=== PATIENT | female | born 1985 | race African-American/Black ===

== ENCOUNTER 2022-05-10 17:25 | Emergency (ER) | payer OTHER, SELFPAY ==
--- NOTE | 2022-05-10 17:26 | ED.FEMALEGU ---
HPI - Female Genitourinary General Chief complaint: Urogenital-Female Stated complaint: uti symptoms Time Seen by Provider: 05/10/22 17:26 Source: patient Mode of arrival: ambulatory Limitations: no limitations History of Present Illness HPI Narrative: Mrs. Martin is a 36 year old female patient presenting to the clinic today with c/o possible UTI x 2 weeks. She reports she is having urinary frequency, urgency, and bladder pressure. She denies any fever, chills, abdomen pain, or flank pain. Related Data Allergies Allergy/AdvReac Type Severity Reaction Status Date / Time No Known Allergies Allergy Mild Unverified 07/13/09 18:52 Review of Systems Review of Systems: Pertinent positives per HPI. Patient denies any fever, chills, rash, headache, visual changes, dizziness, cough, runny nose, sore throat, shortness of breath, chest pain, palpitations, nausea, vomiting, diarrhea, constipation, abdominal pain. PMFSH Comments At the time of my signature, I reviewed and agree with the nursing past medical, surgical, social, and family history. There is no relevant family history pertinent to the patient complaint. Exam Narrative: General: Well-developed, well nourished, in no apparent distress. Head: Normocephalic, atraumatic. Cardio: Regular rate and rhythm, s1 and s2 normal, no murmur appreciated. Resp: Clear to auscultation bilaterally, no rhonchi, rales, wheezing or rubs. Abdomen: Soft, pliable, bowel sounds present in all quadrants, non-tender to palpation, no organomegly, no CVAT tenderness. Course Course Emergency Course: Portions of this record may have been created with voice recognition software. Level of Care: Express Care Visit Vital Signs Vital signs: Vital signs reviewed MDM - Female Genitourinary MDM Narrative Medical decision making narrative: At the time of visit patient is resting exam table. UA was obtained and shows a trace of leukocytes, this could be possibly contaminant but I will send her urine for culture. Pyridium prescription was given to the patient to help manage her symptoms until urine culture comes back. Supportive measures were discussed with the patient she voiced understanding of discharge instructions and agrees to the treatment plan. Differential Diagnosis Differential diagnosis: Likely urinary tract infection and cystitis Discharge Plan Discharge Clinical Impression: Urinary frequency, Urinary urgency Patient Disposition: Home, Self-Care Condition: Stable Instructions: Antibiotic Form, Phenazopyridine (By mouth), Urinary Urgency and Frequency (DC) Additional Instructions: Increase fluids and stay well hydrated Pyridium as prescribed. Wipe front to back. May use wet wipes. Avoid tub baths If sexually active- pee before and after intercourse. Wear cotton panties Avoid tight clothing up against the genitals Follow up with your PCP in 1 week if symptoms persist. Prescriptions: New phenazopyridine [Pyridium] 200 mg tablet 200 mg PO TID PRN (Reason: pain) Qty: 6 0RF Follow-up/Referrals: UNKNOWN,DOCTOR [Primary Care Provider] - Time of Disposition: 17:53 Quality NIHSS Nursing Documentation ED NIHSS nursing documentation: reviewed/agree
[2022-05-10 17:34] VITALS: BP 108/70; PULSE 85; RESP 16; TEMP 37.4; O2SAT 100
== END 2022-05-10 17:58 | disposition home or self-care (01) ==
PROVIDERS: Emergency Provider Nurse Practitioner Family
DX: R35.0 Frequency of micturition (principal); R39.15 Urgency of urination
CPT/HCPCS: 81003; 87077; 87086; 87088; 87186; 99213; G0463

== ENCOUNTER 2023-01-02 08:07 | Outpatient (CLI) | payer OTHER, SELFPAY ==
--- NOTE | ~2023-01-02 | MMUS_ITS ---
EXAMINATION: MM diagnostic jonas BI w chon, US breast BI complete HISTORY: Palpable left breast lump TECHNIQUE: Additional 3-D tomosynthesis images of the breasts were performed and synthetic 2-D images were generated. CAD analysis was submitted and interpreted. High resolution complete bilateral breas t ultrasound was performed. COMPARISON: No prior studies for comparison. BREAST PARENCHYMAL COMPOSITION: The breasts are extremely dense, which lowers the sensitivity of mamm ography FINDINGS: MAMMOGRAPHIC FINDINGS: The breast are composed of scattered bilateral nodular asymmetries which are obscured by dense fibrog landular tissue. No suspicious calcifications or architectural distortion. ULTRASOUND: Complete bilateral US of all 4 quadrants of the breasts and retroareolar region was reviewed. Right breast: At 8:00, 8 cm from the nipple there is an oval parallel oriented partially cystic mass measuring 6 mm with internal septations, most likely benign complicated cyst. At 10:00, 15 cm from th e nipple there is an oval parallel oriented hypoechoic mass with without posterior attenuation or int ernal vascularity measuring 8 mm. At 10:00, 12 cm from the nipple there is an oval hypoechoic mass me asuring 3 mm with low-level internal echoes, parallel orientation, no posterior features, likely a co mplicated cyst. Left breast: In the area of palpable concern at 2:00, 10 cm from the nipple, there is a 6 mm cyst. At 2:00, 9 cm from the nipple, there is a wider than tall hypoechoic 3 mm mass with internal septations , most likely benign cluster of microcysts. In the area of palpable concern at 3:00, 7 cm from the ni pple, there is an oval hypoechoic mass measuring 5 mm with parallel orientation, no significant poste rior features or internal vascularity, likely benign. At 11:00, 10 cm from the nipple there is a simp le 4 mm cyst. Near the areola there is a 5 mm cyst. IMPRESSION: 1. Probable benign bilateral breast masses. 2. Recommend 6 month follow-up diagnostic bilateral mammogram and ultrasound. BI-RADS category 3, probably benign findings. Reviewed, dictated and finalized at location A. IMPRESSION: 1. Probable benign bilateral breast masses. 2. Recommend 6 month follow-up diagnostic bilateral mammogram and ultrasound. BI-RADS category 3, probably benign findings.
== END 2023-01-02 08:08 ==
PROVIDERS: PCP Obstetrics & Gynecology Gynecology; Visit Provider Obstetrics & Gynecology Gynecology
DX: N64.59 Other signs and symptoms in breast (principal)
CPT/HCPCS: 76641; 77062; 77066; G0279

== ENCOUNTER 2023-07-16 18:49 | Emergency (ER) | payer OTHER, SELFPAY ==
[2023-07-16 19:03] VITALS: BP 124/86; PULSE 62; RESP 16; TEMP 36.8; O2SAT 100
--- NOTE | 2023-07-16 19:19 | ED.FEMALEGU ---
HPI - Female Genitourinary General Chief complaint: Urogenital-Female Stated complaint: Urinary Problems Time Seen by Provider: 07/16/23 19:20 Source: RN notes reviewed and old records reviewed Mode of arrival: ambulatory Limitations: no limitations History of Present Illness HPI Narrative: 37 year old female presents to express care with complaints of urinary tract symptoms which includes pressure with urination for the past 2 weeks with frequency,increased for past week with today experiencing odor with urination, Patient reports that she has been drinking some cranberry juice for her symptoms, has not taken any AZO. patient denies any fever, chills or sweats or any nausea or vomiting. Patient denies any concern for STD's. MD elicited complaint: UTI Onset (ago): week(s) (2) Location of symptoms: perineum Severity: mild Quality of pain: other (pressure) Vaginal discharge: none Vaginal bleeding: none Related Data Allergies Allergy/AdvReac Type Severity Reaction Status Date / Time No Known Allergies Allergy Mild Unverified 07/16/23 19:02 Review of Systems Review of Systems: CONSTITUTIONAL: Denies fever, chills, or sweats. CARDIOVASCULAR: Denies chest pain, palpitations, or edema. RESPIRATORY: Denies cough or dyspnea. GASTROINTESTINAL: Denies abdominal pain, nausea, vomiting, or diarrhea. GENITOURINARY: Reports dysuria, frequency, . Denies flank pain or hematuria. SKIN: Denies rash or itching. MUSCULOSKELETAL: Denies back pain or myalgia. Denies CVA tenderness NEUROLOGIC: Denies headache All systems reviewed & are unremarkable except as noted in HPI and below PMFSH Social History Social History (Updated 07/16/23 @ 20:28 by Farida Huggins NP) Smoking status: Never smoker Alcohol intake: current Alcohol use details: social Substance use type: does not use Gender identity (if verbalized by the patient): Female Comments At time of signature, agree with nursing past medical, surgical, social and family history. There is no relevant family history pertinent to the presenting complaint Exam Narrative: GENERAL: Well-appearing, well-nourished, and in no acute distress. HEAD: Normocephalic, atraumatic. NECK: Supple. no lymphadenopathy CHEST: Clear to auscultation. No respiratory distress.SAO2 100% on room air HEART: Regular rate and rhythm. No murmur heard. Normal peripheral pulses. ABDOMEN: Soft, nontender, nondistended, normal active bowel sounds. No CVA tenderness reports perineum pressure and frequency of urination with some odor of urine just today. EXTREMITIES: Normal range of motion. No edema. SKIN: Warm, dry, no rash. NEURO: No focal deficits. Alert and oriented x3. Course Course Emergency Course: Patient is aware of diagnosis, understands and agrees to treatment plan.? Anticipatory guidance given.? Patient agrees to follow-up as directed and is aware of reasons to seek care at the emergency department. Portions of this record may have been created with voice recognition software Level of Care: Express Care Visit Vital Signs Vital signs: Vital Signs Temperature 36.8 C 07/16/23 19:03 Pulse Rate 62 07/16/23 19:03 Respiratory Rate 16 07/16/23 19:03 Blood Pressure 124/86 07/16/23 19:03 Pulse Oximetry 100 07/16/23 19:03 Temperature 36.8 C 07/16/23 19:03 Pulse Rate 62 07/16/23 19:03 Respiratory Rate 16 07/16/23 19:03 Blood Pressure 124/86 07/16/23 19:03 Pulse Oximetry 100 07/16/23 19:03 MDM - Female Genitourinary MDM Narrative Medical decision making narrative: Exam findings and UA show no acute concerns or changes; patient is non-toxic appearing and is in no distress.? Patient is appropriate for outpatient treatment and follow-up. Differential Diagnosis Differential diagnosis: Likely urinary tract infection, cystitis and other (dysuria) Medical Records Attestation: I reviewed the patient's medical records. Lab Data Attestation: I reviewed the pa
== END 2023-07-16 19:34 | disposition home or self-care (01) ==
PROVIDERS: Emergency Provider Registered Nurse; PCP Obstetrics & Gynecology Gynecology
DX: N39.0 Urinary tract infection, site not specified (principal)
CPT/HCPCS: 81003; 87086; 87088; 99213; G0463

== ENCOUNTER 2023-08-01 08:30 | Outpatient (CLI) | payer OTHER, SELFPAY ==
--- NOTE | ~2023-08-01 | MMUS_ITS ---
EXAMINATION: MM diagnostic jonas BI w chon, US breast BI complete HISTORY: Six-month follow-up of probably benign findings TECHNIQUE: Full field and spot ML, MLO and CC 3-D tomosynthesis images of both breasts were performed and synthetic 2-D images were generated. CAD analysis was submitted and interpreted. High resolution complete bilateral breast ultrasound examination including all 4 quadrants and subareolar areas was performed. COMPARISON: 01/02/2023 bilateral diagnostic mammography and bilateral complete breast ultrasound 06/02/2019 outside bilateral screening mammogram BREAST PARENCHYMAL COMPOSITION: The breasts are heterogeneously dense, which may obscure small masses . FINDINGS: MAMMOGRAPHIC FINDINGS: No suspicious mass or architectural distortion, malignant calcification, skin thickening or retractio n or significant new or developing density is detected. ULTRASOUND: No suspicious mass or shadowing of either breast is detected. The following benign lesion s are noted: Right breast: 8:00 9 cm from nipple: Parallel circumscribed 2.2 x 6.8 x 6.2 mm complex lesion without internal vasc ularity or posterior shadowing, benign in appearance 10:00 12 cm from nipple: 3 mm cyst 10:00 12 cm from nipple: Circumscribed 2.4 x 3.6 mm cyst 10:00 11 cm from nipple: 1.8 x 2.9 mm cyst Left breast: 12:00 8 cm from nipple: 2.5 mm cyst 1:00 8 cm from nipple: 4 x 10 x 9 mm simple cyst 1:00 8 cm from nipple: 2.3 x 5.9 mm cyst 1:00 4 cm from nipple: Parallel circumscribed oval mixed echogenic and sonolucent 3 x 6 mm lesion wit hout internal vascularity or posterior shadowing, benign in appearance 7:00 6 cm from nipple: Similar 3.4 x 5 mm mixed sonolucent and hypoechoic lesion without internal vas cularity or posterior shadowing, benign in appearance 10:00 14 cm from nipple: 2.8 x 3.6 mm cyst 11:00 8 cm from nipple: 1.4 x 3.5 mm cyst IMPRESSION Benign findings Routine annual mammographic screening is recommended. BI-RADS Category 2: Benign Reviewed, dictated and finalized at location A. IMPRESSION Benign findings Routine annual mammographic screening is recommended. BI-RADS Category 2: Benign IMPRESSION Benign findings Routine annual mammographic screening is recommended. BI-RADS Category 2: Benign
== END 2023-08-01 08:31 ==
PROVIDERS: PCP Obstetrics & Gynecology Gynecology; Visit Provider Obstetrics & Gynecology Gynecology
DX: N64.59 Other signs and symptoms in breast (principal); R92.8 Other abnormal and inconclusive findings on diagnostic imaging of breast
CPT/HCPCS: 76641; 77062; 77066; G0279

== ENCOUNTER 2024-01-25 13:44 | Emergency (ER) | payer OTHER, SELFPAY ==
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
[2024-01-25 13:48] VITALS: BP 127/68; PULSE 70; RESP 18; TEMP 36.6; O2SAT 100
[2024-01-25] MEDS: KETOROLAC 30 MG/ML VIAL (*BKC) IM (16:45)
[2024-01-25] MEDS: HYDROcodone/acetaminophen (*CRX) 5-325 MG TABLET 1 TAB PO (16:46)
[2024-01-25] MEDS: CYCLOBENZAPRINE HCL 10 MG TABLET PO (16:46)
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
== END 2024-01-25 17:35 | disposition home or self-care (01) ==
PROVIDERS: Emergency Provider Nurse Practitioner Family
DX: S13.4XXA Sprain of ligaments of cervical spine, initial encounter (principal); S29.012A Strain of muscle and tendon of back wall of thorax, initial encounter; V49.40XA Driver injured in collision with unspecified motor vehicles in traffic accident, initial encounter
CPT/HCPCS: 72125; 72128; 96372; 99284; A9270; J1885

== ENCOUNTER 2024-08-09 10:18 | Outpatient (CLI) | payer BC, SELFPAY ==
--- NOTE | ~2024-08-09 | MM_ITS ---
EXAMINATION: MM screening [facility] BI w chon HISTORY: Screening TECHNIQUE: Craniocaudal and mediolateral oblique 3-D tomosynthesis images were obtained and synthetic 2-D images were generated. CAD analysis was submitted and interpreted. COMPARISON: Comparison to multiple prior studies sequentially, with oldest reviewed study dated 06/02. BREAST PARENCHYMAL COMPOSITION: Not dense: There are scattered areas of fibroglandular density. FINDINGS: There is no evidence of suspicious mass, calcification, or architectural distortion to sugg est malignancy in either breast. There has been no suspicious interval change. IMPRESSION: 1. No mammographic evidence of malignancy. 2. Recommend routine screening mammography in one year. BI-RADS Category 1: Negative Reviewed, dictated and finalized at location B. [employer]
== END 2024-08-09 10:19 | disposition home or self-care (01) ==
LOC: MICIMG 10:19
PROVIDERS: PCP Nurse Practitioner; Visit Provider Nurse Practitioner
DX: Z12.31 Encounter for screening mammogram for malignant neoplasm of breast (principal)
CPT/HCPCS: 77063; 77067

== ENCOUNTER 2025-08-27 18:59 | Emergency (ER) | payer BC, SELFPAY ==
[2025-08-27 19:13] VITALS: BP 115/71; PULSE 62; RESP 20; TEMP 36.4; O2SAT 100
--- NOTE | 2025-08-27 19:58 | ED_ITS ---
HPI - Female Genitourinary General Chief complaint: Back Pain/Injury Stated complaint: BACK PAIN History of Present Illness HPI Narrative: CHIEF COMPLAINT: Lower back pain. PATIENT SUMMARY: The patient presented with lower back pain. HISTORY OF PRESENT ILLNESS: The patient reported experiencing lower back pain initially on the right side, which then progressed upward/mid in the back. The pain was accompanied by urgency to urinate without corresponding output and increased vaginal discharge. The discharge was not yellow but was more than normal. The patient did not report itching. The back pain persisted on the right side and occasionally spanned the mid-back. It was sometimes consistent and rated as a 5 or 6 on a pain scale of 0 to 10. Resting alleviated the pain slightly, but it was not exacerbated specifically by movement or sitting. The patient reported not having fever, body aches, chills, nausea, vomiting, or a history of kidney stones. The patient also reported occasional pressure but no pain. PAST MEDICAL HISTORY: Not available. REVIEW OF SYSTEMS: Urinary: Positive for urgency with decreased output. Negative for fever, body aches, chills, nausea, vomiting, or history of kidney stones. Reproductive: Positive for increased vaginal discharge. Negative for itching or sexually transmitted infections. VITALS AND PHYSICAL EXAM: Not available. ASSESSMENT: 1. Urinary tract infection (UTI): The patient presented with urinary urgency and blood in urine but no leukocytes, nitrates, or WBCs, suggesting a possible UTI despite mixed presentation. 2. Kidney stones: The patient's right-sided flank pain and blood in urine raised suspicion, though the lack of severe pain made this less likely. 3. Musculoskeletal back pain: The patient's pain may stem from musculoskeletal issues, considering the location and nature of the pain. PLAN: Treatment: - Prescribed antibiotics for suspected UTI. - Recommended ibuprofen for pain management and inflammation. - Suggested topical treatments for muscle pain, such as Icy Hot or [place]. Tests: - Urine culture to confirm UTI. - Self-swab for potential bacterial vaginosis. Patient Education: - Advised on the use of liquid or chewable ibuprofen. - Informed about signs that would necessitate an emergency room visit. - Discussed the difference in antibiotics for UTI and potential bacterial vaginosis. Follow-Up: - Advised to visit the ER if symptoms worsen or do not improve. Disposition: - Patient to complete the antibiotic course and follow up as necessary based on culture results. MEDICAL DECISION MAKING: The patient presented with lower back pain, urinary urgency, and increased vaginal discharge. The initial differential diagnosis included UTI and kidney stones. A urine culture was planned to confirm the UTI, and antibiotics were prescribed as a precaution. The possibility of kidney stones was considered but deemed less likely due to the patient's pain level. Musculoskeletal pain was also considered given the nature and location of the pain. The patient was advised on pain management strategies, including prev-amn-aghqrth medications and topical treatments. The plan included further testing for bacterial vaginosis, with appropriate follow-up based on results. Patient education empha sized the importance of monitoring symptoms and seeking further care if required. Related Data Home Medications ?Medication ?Instructions ?Recorded ?Confirmed ?Last Taken ?Type drospirenone (contraceptive) 4 mg 08/27/25 Unknown H istory (28) tablet (Slynd) ergocalciferol (vitamin D2) 1,250 08/27/25 Unknown H istory mcg (50,000 unit) capsule Allergies Allergy/AdvReac Type Severity Reaction Status Date / Time mushroom Allergy Hives Verified 08/27/25 19:09 Review of Systems Review of Systems: All systems reviewed & are unremarkable except as noted in HPI and below Eyes: Eyes: Reports as per HPI ENT: Reports as per HPI Cardiovascular: Cardiovascular: Reports as per HPI Respiratory: Respiratory: Reports as per HPI Genitourinary: Genitourinary: Reports as per HPI Musculoskeletal: Musculoskeletal: Reports as per HPI Integumentary/Breasts: Skin/Breast: Reports as per HPI Neurologic: Reports as per HPI Psychiatric: Psychiatric: Reports as per HPI Endocrine: Endocrine: Reports as per HPI Hematologic/Lymphatic: Hematologic/Lymphatic: Reports as per HPI Allergic/Immunologic: Allergic/Immunologic: Reports as per HPI [facility] Social History Social History Smoking status: Never smoker Alcohol intake: current Alcohol use details: social Substance use type: does not use Gender identity (if verbalized by the patient): Female Exam Const: General: cooperative, healthy appearing, comfortable, no acute distress and well developed Orientation/consciousness: patient oriented x3 HENMT: Head: normal to inspection Eyes: General: appearance normal, both eyes and all related structures Resp: Effort & Inspection: normal respiratory effort and able to speak in complete sentences Auscultation: clear to auscultation bilaterally Cardio: Rate: regular rate Rhythm: regular rhythm Heart sounds: S1 normal heart sound present and S2 normal heart sound present Back/Spine/Pelvis: Back: no CVA tenderness Thoracic/Lumbar Spine: thoracic and lumbar spine normal to inspection and paraspinal muscle tenderness on the right in the lower thoracic and in the upper lumbar Skin: General skin exam: normal color Neuro: General: patient oriented x3 Cognition (Neuro): normal cognition Speech: normal speech Psych: Mental Status: mental status grossly normal Course Course Level of Care: Express Care Visit Vital Signs Vital signs: Vital Signs Temperature 97.6 F 08/27/25 19:13 Pulse Rate 62 08/27/25 19:13 Respiratory Rate 20 08/27/25 19:13 Blood Pressure 115/71 08/27/25 19:13 Pulse Oximetry 100 08/27/25 19:13 Oxygen Delivery Room Air 08/27/25 19:13 Temperature 97.6 F 08/27/25 19:13 Pulse Rate 62 08/27/25 19:13 Respiratory Rate 20 08/27/25 19:13 Blood Pressure 115/71 08/27/25 19:13 Pulse Oximetry 100 08/27/25 19:13 Oxygen Delivery Room Air 08/27/25 19:13 MDM - Female Genitourinary MDM Narrative Medical decision making narrative: ASSESSMENT: 1. Urinary tract infection (UTI): The patient presented with urinary urgency and blood in urine but no leukocytes, nitrates, or WBCs, suggesting a possible UTI despite mixed presentation. 2. Kidney stones: The patient's right-sided flank pain and blood in urine raised suspicion, though the lack of severe pain made this less likely. 3. Musculoskeletal back pain: The patient's pain may stem from musculoskeletal issues, considering the location and nature of the pain. PLAN: Treatment: - Prescribed antibiotics for suspected UTI. - Recommended ibuprofen for pain management and inflammation. - Suggested topical treatments for muscle pain, such as Icy Hot or [place]. Tests: - Urine culture to confirm UTI. - Self-swab for potential bacterial vaginosis. Patient Education: - Advised on the use of liquid or chewable ibuprofen. - Informed about signs that would necessitate an emergency room visit. - Discussed the difference in antibiotics for UTI and potential bacterial vagino sis. Follow-Up: - Advised to visit the ER if symptoms worsen or do not improve. Disposition: - Patient to complete the antibiotic course and follow up as necessary based on culture results. MEDICAL DECISION MAKING: The patient presented with lower back pain, urinary urgency, and increased vaginal discharge. The initial differential diagnosis included UTI and kidney stones. A urine culture was planned to confirm the UTI, and antibiotics were prescribed as a precaution. The possibility of kidney stones was considered but deemed less likely due to the patient's pain level. Musculoskeletal pain was also considered given the nature and location of the pain. The patient was advised on pain management strategies, including agxk-zeg-yhrsjkm medications and topical treatments. The plan included further testing for bacterial vaginosis, with appropriate follow-up based on results. Patient education emphasized the importance of monitoring symptoms and seeking further care if required. Differential Diagnosis Differential diagnosis: Likely urinary tract infection and bacterial vaginosis Lab Data Attestation: I reviewed the patient's lab results. Discharge Plan Discharge Clinical Impression: UTI symptoms, Flank pain, right side Patient Disposition: Home Condition: Stable Instructions: Antibiotic Form, Urinary Tract Infection in Women (ED), Flank Pain (ED) Additional Instructions: I am treating you for UTI as your sympotms are consistent with that but there is only blood in your urine at this time. If things get worse to the ER. We are doing a culture so if anything is positive than someone will call. Ibuprofen or tylenol for pain. Since you do not do well with pills you could try a arianne verision. Ibuprofen could be anywehre from 200-600mg every 6 to 8 hours. Tylenol is 500mg every 6 hours as needed. We are also swabbing you for BV if positive someone will call. Patient Language: Belgian Prescriptions: New nitrofurantoin monohyd/m-cryst [Macrobid] 100 mg capsule 100 mg PO Q12H 3 Days Qty: 6 0RF Rx Instructions: must administer with a meal/food No Action ergocalciferol (vitamin D2) 1,250 mcg (50,000 unit) capsule Slynd 4 mg (28) tablet Follow-up/Referrals: LizbethYamilet APRN [Primary Care Provider, Unknown] Time of Disposition: 20:08
[2025-08-29 11:50] LABS: EDUAAPPEAR Clear; EDUABILI Negative (Negative); EDUABLOOD 1+ (Negative); EDUACOLOR1 Yellow; EDUAGLUCOSE Negative (Negative); EDUAKETONE Negative (Negative); EDUALEUKO Negative (Negative); EDUANITRATE Negative (Negative); EDUAPH 6.5; EDUAPROTEIN Negative (Negative); EDUASPGRAVITY 1.020; EDUAUROBILI 1.0
== END 2025-08-27 20:20 | disposition home or self-care (01) ==
PROVIDERS: Emergency Provider Nurse Practitioner Family; PCP Nurse Practitioner Family
DX: R39.15 Urgency of urination (principal); R10.A1 Flank pain, right side; N89.8 Other specified noninflammatory disorders of vagina
CPT/HCPCS: 81003; 87798; 99213; G0463

== ENCOUNTER 2025-09-14 14:59 | Outpatient (CLI) | payer BC, SELFPAY ==
--- NOTE | ~2025-09-14 | US_ITS ---
EXAM/PROCEDURE: US pelvic complete HISTORY: pelvic pain COMPARISON: None available. TECHNIQUE: Pelvic ultrasound LMP: None provided/unknown FINDINGS: The uterus measures 9.2 x 4.7 x 5.4 cm Uterus is somewhat heterogeneous in echotexture with probable fibroids. The largest is in the fundal portion measuring 3.7 x 2.4 x 3.3 cm. Endometrial stripe: 6 mm Right ovary: 3.8 x 2.0 x 2.9 cm Left ovary: 3.0 x 1.7 x 2.3 cm Both ovaries appear normal in echotexture and vascular flow. No free fluid seen. IMPRESSION: Fibroid changes of the uterus. The ovaries appear normal in vascular flow, size and echotexture. Reviewed, dictated and finalized at location A. RANCE ASSOCIATE
== END 2025-09-14 15:00 | disposition home or self-care (01) ==
PROVIDERS: PCP Nurse Practitioner Family; Visit Provider Obstetrics & Gynecology Gynecology
DX: D25.9 Leiomyoma of uterus, unspecified (principal)
CPT/HCPCS: 76856

== ENCOUNTER 2025-09-15 12:29 | Outpatient (CLI) | payer BC, SELFPAY ==
--- NOTE | ~2025-09-15 | MM_ITS ---
EXAMINATION: MM screening jonas BI w chon HISTORY: Screening. TECHNIQUE: Craniocaudal and mediolateral oblique 3-D tomosynthesis images were obtained and synthetic 2-D images were generated. CAD analysis was submitted and interpreted. COMPARISON: 2023, 2022, and 2018 BREAST PARENCHYMAL COMPOSITION: Dense: The breasts are heterogeneously dense FINDINGS: No suspicious masses are seen. There are no suspicious calcifications. No unexplained architectural distortion is seen. There are no skin or nipple abnormalities identified. There is no adenopathy seen on the images submitted. IMPRESSION: No mammographic evidence to suggest malignancy is seen. The patient may return to screening mammography as per ACR guidelines. BI-RADS 1 - Negative. Reviewed, dictated and finalized at location C. WHEAD POLISHER
== END 2025-09-15 12:30 | disposition home or self-care (01) ==
LOC: MICIMG 12:30
PROVIDERS: PCP Nurse Practitioner Family; Visit Provider Nurse Practitioner
DX: Z12.31 Encounter for screening mammogram for malignant neoplasm of breast (principal)
CPT/HCPCS: 77063; 77067